=== PATIENT | male | born 1940 ===

== ENCOUNTER 2018-06-15 16:21 | Outpatient (RCR) | payer MEDICARE ==
[~2018-06-15 16:21] MED LIST: FAMO20TA28 PO; HYDR-389 PO; IBUP800T37 PO; LEVO-85 PO; LORA-788 PO; MULT1CAP59 PO; TAMS0.4C70 PO
[2018-06-16 16:14] VITALS: BP 136/84
--- NOTE | 2018-06-17 02:14 | [facility] ONCOLOGY NOTE ---
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 ONCOLOGY HISTORY Patient is a 77-year-old male who presented with sharp, disabling pain in the hips, preventing patient from walking 20 feet, and the patient was found to have a PSA of 190.6. Patient presented on February 17, 2016. He ended by having TRUS with biopsy on 23 March 2016, and the pathology came back positive for prostatic adenocarcinoma in all the 12 cores. The maximal Fisk score was 9 at the prostate right lateral apex, and a Claudia score of 8 at the right base. The rest of the cores have a Claudia score of 6 to 7. In March 2016, patient started combined androgen blockade with Lupron and bicalutamide. He had a bone scan done on 13 April 2016, which showed scattered focal areas of increased uptake in the left ilium adjacent to the acetabulum and in the right sixth and seventh ribs. On 14 April 2016, CT abdomen and pelvis showed retroperitoneal lymphadenopathy in the periaortic and pericaval chains, right internal and external lymphadenopathy, prostatomegaly without evidence of invasion of adjacent structures. There was a focus of blastic metastatic disease in the left ilium. Patient showed a response initially. His PSA in July 2016 was 1.46, and in May 2017 was 0.51, but on 21 September 2017 his PSA was 0.61. On 13 December 2017 it was 0.7. On 14 March 2018 it was 1.38. So, patient had a bone scan done on 16 May 2018, which came back negative for metastasis. CT chest/abdomen/pelvis done on 13 May 2018 showed pleural calcifications consistent with asbestos exposure and bilateral adrenal adenomas, diverticulosis, abdominal aortic aneurysm and enlarged prostate to the base of the bladder. Patient is referred for further evaluation and management. Patient has been seen by Dr. Melvin Aguilar with recommendation of stopping bicalutamide and starting another treatment. Patient stopped Casodex, but he started to have pain in his bones again, like when he was initially diagnosed, and he resumed the Casodex after discontinuation of Casodex for only about five days. PAST MEDICAL HISTORY Prostate cancer. PAST SURGICAL HISTORY 1. Nasal polypectomy. 2. Tonsillectomy as a child. 3. TRUS in March 2016. FAMILY HISTORY Negative for cancer. SOCIAL HISTORY Patient is with five children. 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 He smoked about 1-1/2 packs per day for 69 years, and he drinks whiskey with coffee every morning. He currently does not use any illicit drugs. . CURRENT MEDICATIONS 1. Acetaminophen/hydrocodone 7.5/325, one tablet every four to six hours p.r.n. for pain. 2. Ibuprofen 800 mg tablet three times a day for pain. 3. Multivitamin, one pill a day. 4. Flomax 0.4 mg daily. 5. Lupron shots every month. ALLERGIES NEOSPORIN and POTASSIUM. REVIEW OF SYSTEMS CONSTITUTIONAL: Patient has some hot flashes. HEENT: Ears: No tinnitus or hearing problem. Nose: No nasal discharge or epistaxis. Throat: No sore throat or mouth ulcers. Eyes: No diplopia or visual changes. RESPIRATORY: Has cough with expectoration. CARDIOVASCULAR: No chest pain, orthopnea, or paroxysmal nocturnal dyspnea (PND). No edema. No palpitations. GASTROINTESTINAL: He has diarrhea alternating with constipation sometimes. GENITOURINARY: He has nocturia if he misses his Flomax pills. MUSCULOSKELETAL: He has pain in the legs and in the hips bilaterally. NEUROLOGICAL: No tingling or numbness in the hands or feet. No headaches or convulsions. HEMATOLOGIC/LYMPHATIC: He is weak, tired, and fatigued. SKIN: No skin rash or lumps. PSYCHIATRIC: No anxiety or depression. PHYSICAL EXAMINATION GENERAL: Looks stable. Well-developed, well-nourished, and in no acute distress. VITAL SIGNS: Blood pressure 136/84, pulse 94 per minute, respirations 16 per minute, temperature 98.2, pulse oximetry 93% on room air. HEENT: Head: Atraumatic. No sinus tenderness to palpation. Eyes: No icterus or conjunctivitis. Mouth and throat: No oral thrush or mucositis. NECK: Supple. No cervical or supraclavicular lymphadenopathy. LUNGS: Clear to auscultation and percussion bilaterally. HEART: Regular rate and rhythm. No gallops, murmurs, clicks or rubs. ABDOMEN: Soft and lax. No tenderness. No hepatosplenomegaly. No masses. EXTREMITIES: No cyanosis, clubbing or edema. LYMPHATICS: No peripheral lymphadenopathy. NEUROLOGICAL: Conscious, alert and oriented times three. No focal motor or sensory deficits. PSYCHIATRIC: Mood and affect appear normal. SKIN: No skin rash, bruise or purpuric eruption. ASSESSMENT Castration-resistant, hormone-sensitive prostate cancer with retroperitoneal lymphadenopathy and pelvic lymphadenopathy and bone metastases. Started treatment with combined androgen blockade in March 2016, after a transrectal ultrasound done on 23 March 2018 which showed cancer in 12 cores, with a maximal Fisk score of 9 (4+5) at the right lateral apex and a Fisk score of 8 at the right base. The rest of the cores have Fisk score between 7 and 6. Patient showed response to treatment, but recently he has rising PSA. In May 2017 it was 0.51. In September 2017 it was 0.61. In December 2017 it was 0.7. In March 2018 it was 1.38. Patient had a bone scan on 16 May 2018 which was negative for metastases. He has also had a CT chest/abdomen/pelvis on 13 May 2018 which showed pleural calcifications, bilateral adrenal adenomas, diverticulosis, abdominal aortic aneurysm, and enlarged prostate to the base of the bladder, but there was no lymphadenopathy. For his biochemical relapse of the PSA, I am planning to stop bicalutamide and start treatment with either Zytiga or Xtandi. Patient has a problem with payment. He does not have drug coverage, and for this reason I am planning to ask the outreach and education social worker to help him to get one of these two drugs instead of bicalutamide, and we will continue to monitor his PSA after we start the treatment. I explained that to the patient, and he is agreeable with the plan of management. PLAN 1. Xtandi 160 mg daily. 2. social worker psychiatric to help to get the drug from the company if the insurance will not cover the Xtandi. 3. Check CBC, chem panel, and PSA prior to starting the patient. 4. Patient to return one month after the treatment with CBC, chem panel, and PSA. 5. CBC and chem panel to be checked weekly after starting Xtandi for the first month. 6. Patient to contact us for any new concerns or complaints. [facility]
--- NOTE | 2018-07-29 12:16 | NUR ---
SW faxed the confirmation of PAF co-pay assistance to [facility].
--- NOTE | 2018-08-09 19:59 | ONCOLOGY CHEMO TEACHING ---
DATE OF EVENT: August 08, 2018 DIAGNOSIS Metastatic prostate cancer. I spoke with the patient and his via phone today to discuss upcoming treatment with Zytiga and prednisone. A total of 45 minutes was spent on the phone with discussion regarding this treatment. HISTORY OF PRESENT ILLNESS Patient was diagnosed with castrate-resistant, hormone-sensitive prostate cancer with retroperitoneal lymphadenopathy. DICTATION ENDS HERE. MTDD
--- NOTE | 2018-08-09 21:08 | ONCOLOGY CHEMO TEACHING ---
DATE OF EVENT: August 09, 2018 The patient is a 78-year-old male with metastatic prostate cancer. He had been controlled on combined androgen blockade with Lupron and bicalutamide. PSA has recently increased, and the recommendation was for him to stop bicalutamide. He will begin treatment with abiraterone on 08/10/18. I spoke with his over the phone today to discuss the possible side effects of abiraterone. He will begin abiraterone 500 mg two daily. He is instructed to take this on an empty stomach and to swallow the tablets whole. He will also need to take prednisone 5 mg b.i.d. We reviewed that this can sometimes cause GI discomfort, so he may need to take this with food. We reviewed the possible side effects including fatigue, headache, muscle or joint pain, peripheral edema, hot flashes, hyperglycemia, and hypertriglyceridemia. Also noted was a small risk of osteoporosis as well as electrolyte abnormalities, hypertension, and increased liver function tests. The patient's is a nurse, and she has read extensively on the medication, but appreciated this followup phone call. DISCUSSION 1. A total of 30 minutes was spent on the phone with her today to discuss these medications. 2. Patient will have a CBC and CMP done weekly. He will see Dr. Barajas in four weeks. CBC, CMP, and PSA will be repeated at that time. NORMAN
--- NOTE | 2018-08-12 09:14 | NUR ---
Nurse returned call from patient's , Jocelyn, regarding questions she has. Nurse clarified the questions with YUDITH Vazquez. Patient is to take the 2 tablets of zytiga in the a.m. and take 5 mg of prednisone with breakfast and dinner. The also had concerns regarding the patient assistance through [employer]. They will be unable to pay for the third month of the medication. Nurse relayed this information to Brionna PHILIP. Brionna is planning to contact [employer] regarding approving patient for the remainder of the year without the patient having to pay for the third month. The stated that the patient would have to stop the medication if they have to pay out of pocked for the third month. Nurse informed the patient of Brionna's plan to contact [employer]. Nurse said that the patient and the will have to decide if they want the patient to begin the medication now hoping that Brionna will be able to get the third month covered as well or wait until they have an answer from that. She stated that they would discuss the options and decide what to do. Nurse reiterated that the patient needs to stay on the Casodex until the patient begins taking the zytiga. She verbalized understanding of all of the above discussions and agreed with the plan of care.
[2018-08-22] MEDS ORDERED: ABIR250T PO (13:31)
[2018-08-22] MEDS ORDERED: PRED-1 PO (13:31)
== END 2018-09-13 ==
LOC: ONC 16:21
PROVIDERS: ATTEND Internal Medicine Hematology
DX: C61 Malignant neoplasm of prostate (principal); C79.51 Secondary malignant neoplasm of bone; C77.3 Secondary and unspecified malignant neoplasm of axilla and upper limb lymph nodes; Z87.891 Personal history of nicotine dependence
CPT/HCPCS: 99202

== ENCOUNTER 2018-12-02 11:41 | Outpatient (RCR) | payer MEDICARE ==
[2018-09-23 12:28] VITALS: BP 135/80
--- NOTE | 2018-09-23 20:12 | [facility] ONCOLOGY NOTE ---
EVENT DATE: September 23, 2018 DIAGNOSIS Metastatic prostate cancer. CHIEF COMPLAINT Patient is here today for followup of his prostate cancer. ONCOLOGY HISTORY Patient is a 78-year-old male who presented with sharp, disabling pain in the hips, preventing patient from walking 20 feet, and the patient was found to have a PSA of 190.6. Patient presented on February 17, 2016. He ended by having TRUS with biopsy on the March, and the pathology came back positive for prostatic adenocarcinoma in all the 12 cores. The maximal Rochester score was 9 at the prostate right lateral apex and a Claudia score of 8 at the right base. The rest of the cores have a Rochester score of 6 to 7. In March 2016, patient started combined androgen blockade with Lupron and bicalutamide. He had a bone scan done on the April, which showed scattered focal areas of increased uptake in the left ilium adjacent to the acetabulum and in the right sixth and seventh ribs. On the April, CT abdomen and pelvis showed retroperitoneal lymphadenopathy in the periaortic and pericaval chains, right internal and external lymphadenopathy, prostatomegaly without evidence of invasion of adjacent structures. There was a focus of blastic metastatic disease in the left ilium. Patient showed a response initially. His PSA in July 2016 was 1.46, and in May 2017, was 0.51, but on the September, his PSA was 0.61. On the December, it was 0.7. On the March, it was 1.38. So, patient had a bone scan done on the May, which came back negative for metastasis. CT chest/abdomen/pelvis done on the May showed pleural calcifications consistent with asbestos exposure, bilateral adrenal adenomas, diverticulosis, abdominal aortic aneurysm, and enlarged prostate to the base of the bladder. Patient is referred for further evaluation and management. Patient has been seen by Dr. Melvin Aguilar with recommendation of stopping bicalutamide and starting another treatment. Patient stopped Casodex, but he started to have pain in his bones again like when he was initially diagnosed, and he resumed the Casodex after discontinuation of Casodex for only about five days. Patient started treatment with Zytiga and the prednisone on the August. HISTORY OF PRESENT ILLNESS Patient is here today for followup of his metastatic prostate cancer. He has significant hot flashes, especially after starting Zytiga and prednisone. He has cough with shortness of breath. He has occasional headache. He is weak, tired, and fatigued. Patient had his PSA checked on the 23 of August, and it came back 10.7, and on the 05 of September, and it came back to 14. PAST MEDICAL HISTORY Prostate cancer. PAST SURGICAL HISTORY 1. Nasal polypectomy. 2. Tonsillectomy as a child. 3. TRUS in March 2016. FAMILY HISTORY Negative for cancer. SOCIAL HISTORY Patient is with five children. 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 He smoked about 1-1/2 packs per day for 69 years, and he drinks whiskey with coffee every morning. He currently does not use any illicit drugs. . CURRENT MEDICATIONS 1. Acetaminophen/hydrocodone 7.5/325, one tablet every four to six hours p.r.n. for pain. 2. Ibuprofen 800 mg tablet three times a day for pain. 3. Multivitamin one pill a day. 4. Flomax 0.4 mg daily. 5. Lupron shots every month. ALLERGIES NEOSPORIN and POTASSIUM. REVIEW OF SYSTEMS CONSTITUTIONAL: No appetite or weight change. No fever or chills. He has hot flashes. No recent infection. HEENT: Ears: No tinnitus or hearing problem. Nose: No nasal discharge or epistaxis. Throat: No sore throat or mouth ulcers. Eyes: No diplopia or visual changes. RESPIRATORY: He has cough and shortness of breath. CARDIOVASCULAR: No chest pain, orthopnea, or paroxysmal nocturnal dyspnea (PND). No edema. No palpitations. GASTROINTESTINAL: No nausea or vomiting. No diarrhea or constipation. No change in bowel movements. No heartburn or swallowing difficulties. No abdominal pain. No jaundice. No hematemesis, melena, or rectal bleeding. GENITOURINARY: No hematuria or dysuria. MUSCULOSKELETAL: No pain in the muscles, joints, or bones. NEUROLOGICAL: No tingling or numbness in the hands or feet. He has headache. No convulsions. HEMATOLOGIC/LYMPHATIC: No bleeding or easy bruising. He is weak, tired, and fatigued. No enlarged lymph nodes. SKIN: No skin rash or lumps. PSYCHIATRIC: No anxiety or depression. PHYSICAL EXAMINATION GENERAL: Looks stable. Well developed, well nourished, and in no acute distress. VITAL SIGNS: Blood pressure 135/80, pulse 63 per minute, respirations 16 per minute, temperature 97.6, pulse ox 97% on room air. HEENT: Head: Atraumatic. No sinus tenderness to palpation. Eyes: No icterus or conjunctivitis. Mouth and Throat: No oral thrush or mucositis. NECK: Supple. No cervical or supraclavicular lymphadenopathy. LUNGS: Clear to auscultation and percussion bilaterally. HEART: Regular rate and rhythm. No gallops, murmurs, clicks, or rubs. ABDOMEN: Soft and lax. No tenderness. No hepatosplenomegaly. No masses. EXTREMITIES: No cyanosis, clubbing, or edema. LYMPHATICS: No peripheral lymphadenopathy. NEUROLOGICAL: Conscious, alert, and oriented times three. No focal motor or sensory deficits. PSYCHIATRIC: Mood and affect appear normal. SKIN: No skin rash, bruise, or purpuric eruption. DIAGNOSTIC DATA Chem panel showed blood sugar 127. Other parameters are normal. CBC showed white count 8.7, hemoglobin 15, hematocrit 43.6, and platelets 414,000. PSA is 14 when it was done on the 05 of September, and it was up from 10.7 on the August. ASSESSMENT 1. Metastatic prostate cancer with retroperitoneal lymphadenopathy and pelvic lymphadenopathy and bone metastases. Patient started treatment with combined androgen blockade in March 2016 after a transrectal ultrasound done on the March showed cancer in 12 cores, with a maximal Rochester score of 9 (4 + 5) at the right lateral apex and a Rochester score of 8 at the right base. The rest of the cores have Claudia scores between 7 and 6. Patient showed response to treatment, but recently he has a rising PSA. In May 2017, it was 0.51, and in September 2017, it was 0.61. In December 2017, it was 0.7, and in March 2018, it was 1.38. Patient had a bone scan on the May, which was negative for metastasis. He has also had a CT chest/abdomen/pelvis on the May, which showed pleural calcifications, bilateral adrenal adenomas, diverticulosis, abdominal aortic aneurysm, and enlarged prostate to the base of the bladder, but there was no lymphadenopathy. For his biochemical relapse of PSA, Casodex is stopped, and the patient has started treatment with Zytiga and prednisone on the August. Patient does not have good insurance, and we got the Zytiga from the pharmaceutical company. He has PSA on the 23 of August at 10.7 and on the 05 of September at 14. I am planning to get a PSA now, and I will see the patient in a month from now with CBC, chemistry panel, and PSA. In the meantime, will continue Zytiga and prednisone. 2. Hot flashes due to his treatment. 3. Fatigue due to the treatment for prostate cancer. PLAN 1. Continue Zytiga and prednisone. 2. Patient to return in one month with CBC, chem panel, PSA. 3. Check PSA today. 4. Patient to contact us for any new concerns or complaints. [facility]
[2018-10-28 11:52] VITALS: BP 158/86
--- NOTE | 2018-10-28 23:00 | ONCOLOGY FOLLOW UP NOTE ---
EVENT DATE: October 28, 2018 DIAGNOSIS Metastatic prostate cancer. CHIEF COMPLAINT Patient is here today for followup of his prostate cancer. ONCOLOGY HISTORY Patient is a 78-year-old male who presented with sharp, disabling pain in the hips, preventing patient from walking 20 feet, and the patient was found to have a PSA of 190.6. Patient presented on February 17, 2016. He ended by having TRUS with biopsy on the March, and the pathology came back positive for prostatic adenocarcinoma in all the 12 cores. The maximal [place] score was 9 at the prostate right lateral apex and a Claudia score of 8 at the right base. The rest of the cores have a [place] score of 6 to 7. In March 2016, patient started combined androgen blockade with Lupron and bicalutamide. He had a bone scan done on the April, which showed scattered focal areas of increased uptake in the left ilium adjacent to the acetabulum and in the right sixth and seventh ribs. On the April, CT abdomen and pelvis showed retroperitoneal lymphadenopathy in the periaortic and pericaval chains, right internal and external lymphadenopathy, prostatomegaly without evidence of invasion of adjacent structures. There was a focus of blastic metastatic disease in the left ilium. Patient showed a response initially. His PSA in July 2016 was 1.46, and in May 2017, was 0.51, but on the September, his PSA was 0.61. On the December, it was 0.7. On the March, it was 1.38. So, patient had a bone scan done on the May, which came back negative for metastasis. CT chest/abdomen/pelvis done on the May showed pleural calcifications consistent with asbestos exposure, bilateral adrenal adenomas, diverticulosis, abdominal aortic aneurysm, and enlarged prostate to the base of the bladder. Patient is referred for further evaluation and management. Patient has been seen by Dr. Melvin Aguilar with recommendation of stopping bicalutamide and starting another treatment. Patient stopped Casodex, but he started to have pain in his bones again like when he was initially diagnosed, and he resumed the Casodex after discontinuation of Casodex for only about five days. Patient started treatment with Zytiga and the prednisone on the August. HISTORY OF PRESENT ILLNESS Patient is here today for followup of his metastatic prostate cancer, currently on Zytiga and prednisone. He is complaining of hot flashes, cough with expectoration, pain in the thighs, and headache. Other than that, he is stable. PAST MEDICAL HISTORY Prostate cancer. PAST SURGICAL HISTORY 1. Nasal polypectomy. 2. Tonsillectomy as a child. 3. TRUS in March 2016. FAMILY HISTORY Negative for cancer. SOCIAL HISTORY Patient is with five children. 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 He smoked about 1-1/2 packs per day for 69 years, and he drinks whiskey with coffee every morning. He currently does not use any illicit drugs. . CURRENT MEDICATIONS 1. Acetaminophen/hydrocodone 7.5/325, one tablet every four to six hours p.r.n. for pain. 2. Ibuprofen 800 mg tablet three times a day for pain. 3. Multivitamin one pill a day. 4. Flomax 0.4 mg daily. 5. Lupron shots every month. ALLERGIES NEOSPORIN and POTASSIUM. REVIEW OF SYSTEMS CONSTITUTIONAL: Patient has some hot flashes. No appetite or weight change. No fever, chills, or sweating. No recent infection. HEENT: Ears: No tinnitus or hearing problem. Nose: No nasal discharge or epistaxis. Throat: No sore throat or mouth ulcers. Eyes: No diplopia or visual changes. RESPIRATORY: No shortness of breath. He has some cough with expectoration. No hemoptysis. CARDIOVASCULAR: No chest pain, orthopnea, or paroxysmal nocturnal dyspnea (PND). No edema. No palpitations. GASTROINTESTINAL: No nausea or vomiting. No diarrhea or constipation. No change in bowel movements. No heartburn or swallowing difficulties. No abdominal pain. No jaundice. No hematemesis, melena, or rectal bleeding. GENITOURINARY: No hematuria or dysuria. MUSCULOSKELETAL: He has pain in the thighs. NEUROLOGIC: No tingling or numbness in the hands or feet. He has constant headaches. No convulsions. HEMATOLOGIC/LYMPHATIC: No bleeding or easy bruising. No weakness or fatigue. No enlarged lymph nodes. SKIN: No skin rash or lumps. PSYCHIATRIC: No anxiety or depression. PHYSICAL EXAMINATION GENERAL: Looks stable. Well developed, well nourished, and in no acute distress. VITAL SIGNS: Blood pressure 158/86, pulse 65 per minute, respirations 16 per minute, temperature 98, pulse ox 93% on room air. HEENT: Head: Atraumatic. No sinus tenderness to palpation. Eyes: No icterus or conjunctivitis. Mouth and Throat: No oral thrush or mucositis. NECK: Supple. No cervical or supraclavicular lymphadenopathy. LUNGS: Clear to auscultation and percussion bilaterally. HEART: Regular rate and rhythm. No gallops, murmurs, clicks, or rubs. ABDOMEN: Soft and lax. No tenderness. No hepatosplenomegaly. No masses. EXTREMITIES: No cyanosis, clubbing, or edema. DIAGNOSTIC DATA CBC showed white count 8.5, hemoglobin 15.9, hematocrit 46.2, platelets 221,000. Chem panel is totally normal. PSA is 19.82. ASSESSMENT 1. Metastatic prostate cancer with retroperitoneal lymphadenopathy and pelvic lymphadenopathy and bone metastases. Patient started treatment with combined androgen blockade March 2016 after a transrectal ultrasound done March showed cancer in 12 cores, with a maximal [place] score of 9 (4 + 5) at the right lateral apex and a Claudia score of 8 at the right base. The rest of the cores have Claudia scores of 7 and 6. Patient showed response to treatment, but recently he had a rising PSA. In May 2017, his PSA was 0.51, and in September 2017, it was 0.61. In December 2017, it was 0.7, and March 2018, it was 1.38. Patient had a bone scan on the May, which was negative bony metastases. He has also had a CT chest/abdomen/pelvis May, which showed pleural calcifications, bilateral adrenal adenomas, diverticulosis, abdominal aortic aneurysm, and enlarged prostate to the base of the bladder, but there was no lymphadenopathy. For his biochemical relapse of PSA, Casodex was stopped, and the patient started treatment with Zytiga and prednisone the August. His PSA in August was 10.7, which karon after that in September 2018 to 14, and currently it is 19.8. Given that the patient does not respond to Zytiga, I will try to get approval of the pharmaceutical company to provide him with Xtandi. I talked to him also briefly about possible chemotherapy with Taxotere. Patient is opposing the day of chemotherapy, but I think if this will be the only option, he may agree to have the treatment at that time. I am planning to see him in a month after he will start Xtandi with CBC, chemistry panel, and PSA. 2. Hot flashes due to his treatment. 3. Fatigue due to treatment for prostate cancer. PLAN 1. Continue Zytiga and prednisone until Xtandi will be available. 2. Xtandi 160 mg daily. 3. Patient to return in one month after starting Xtandi with CBC, chem panel, and PSA. 4. Patient to contact us for any new concern or complaints. MTDD
--- NOTE | 2018-11-01 09:24 | NUR ---
C[facility] faxed in new application for Xtandi Patient Assistance. Hope to get pt approved for free drug.
--- NOTE | 2018-11-03 12:30 | NUR ---
Returned call from , Jocelyn. She had some questions regarding patient starting Xtandi. The first question that she had was if it was okay for Tray to abruptly stop taking prednisone. Nurse assured her that it was a low dose but that she could cut those 5 mg tablets in half and give Tray 2.5 mg BID for a week then stop. She stated that he will have his lab work done in [place]. He will start the Xtandi today. He will get his lab work done on 11/28/18 and follow up with Dr. Spaulding on 12/02/18. verbalized understanding and agrees with the plan of care. Nurse encouraged her to call our office if any other questions arise.
[2018-11-08 13:08] VITALS: BP 123/81
[2018-11-08 14:08] LABS: PLATELET COUNT, AUTOMATED 241 K/uL (150-450)
--- NOTE | 2018-11-09 09:04 | ONCOLOGY FOLLOW UP NOTE ---
EVENT DATE: November 08, 2018 DIAGNOSIS Metastatic prostate cancer. CHIEF COMPLAINT Patient is here today for ongoing followup on his prostate cancer. He has many questions regarding his Xtandi. ONCOLOGY HISTORY Patient is a 78-year-old male who presented with sharp, disabling pain in the hips, preventing patient from walking 20 feet, and the patient was found to have a PSA of 190.6. Patient presented on February 17, 2016. He ended by having TRUS with biopsy on March 23, 2016, and the pathology came back positive for prostatic adenocarcinoma in all the 12 cores. The maximal [place] score was 9 at the prostate right lateral apex and a Claudia score of 8 at the right base. The rest of the cores have a [place] score of 6 to 7. In March 2016, patient started combined androgen blockade with Lupron and bicalutamide. He had a bone scan done on April 13, 2016, which showed scattered focal areas of increased uptake in the left ilium adjacent to the acetabulum and in the right sixth and seventh ribs. On April 14, 2016, CT abdomen and pelvis showed retroperitoneal lymphadenopathy in the periaortic and pericaval chains, right internal and external lymphadenopathy, prostatomegaly without evidence of invasion of adjacent structures. There was a focus of blastic metastatic disease in the left ilium. Patient showed a response initially. His PSA in July 2016 was 1.46, and in May 2017, was 0.51, but on the September, his PSA was 0.61. On December 13, 2017, it was 0.7. On March 14, 2018, it was 1.38. So, patient had a bone scan done on the May, which came back negative for metastasis. CT chest/abdomen/pelvis done on May 13, 2018 showed pleural calcifications consistent with asbestos exposure, bilateral adrenal adenomas, diverticulosis, abdominal aortic aneurysm, and enlarged prostate to the base of the bladder. Patient is referred for further evaluation and management. Patient has been seen by Dr. Melvin Aguilar with recommendation of stopping bicalutamide and starting another treatment. Patient stopped Casodex, but he started to have pain in his bones again like when he was initially diagnosed, and he resumed the Casodex after discontinuation of Casodex for only about five days. Patient started treatment with Zytiga and the prednisone on August 12, 2018. Patient has now discontinued that. He started Xtandi in early November 2018. HISTORY OF PRESENT ILLNESS Mr. John is here today for followup regarding his metastatic prostate cancer after recently initiating Xtandi. He is accompanied in the office by his . Most recently, he was instructed to discontinue Zytiga and prednisone as he was not responding to that and was initiated on Xtandi. He did not start this until last weekend, in early November. He has had hot flashes and remains on Lupron. He is off Casodex. He does have generalized arthralgias. He continues to have a cough with expectoration. No hemoptysis. The patient and are concerned about Xtandi. He apparently started this , November 03, and on Wednesday morning, after taking two daily doses, he reports having "a spell" which consisted of sudden nausea and subsequent fainting. He tells me that he was at home, doens't think he was dehydrated, had just laid down in bed, and after rolling over on his left side he suddenly became nauseous. The room started to darken and went black and he tells me that he then passed out. 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 She tells me that she thinks maybe his pulse was irregular. He denies any cardiac history, although patient and his tell me that several years ago he went into the emergency room complaining of chest pain and he tells me he was subsequently admitted for at least seven days and cardiac workup was negative. I do not have these records. These symptoms only occurred once on Wednesday but as a result he did not take his third daily dose on Wednesday and has since self-discontinued this. He is extremely concerned about reinitiating Xtandi and has questions today about further treatment. He is aware that Dr. Barajas discussed potential chemotherapy with Taxotere in the future and he has questions about this as well. Otherwise, he has had no other issues. PAST MEDICAL HISTORY Prostate cancer. PAST SURGICAL HISTORY 1. Nasal polypectomy. 2. Tonsillectomy as a child. 3. TRUS in March 2016. FAMILY HISTORY Negative for cancer. SOCIAL HISTORY Patient is with five children. 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 He smoked about 1-1/2 packs per day for 69 years, and he drinks whiskey with coffee every morning. He currently does not use any illicit drugs. . CURRENT MEDICATIONS 1. Acetaminophen/hydrocodone 7.5/325, one tablet every four to six hours p.r.n. for pain. 2. Ibuprofen 800 mg tablet three times a day for pain. 3. Multivitamin one pill a day. 4. Flomax 0.4 mg daily. 5. Lupron shots every month. ALLERGIES NEOSPORIN and POTASSIUM. REVIEW OF SYSTEMS CONSTITUTIONAL: Patient denies any recent fevers, chills or night sweats. No recent infections. His appetite and weight have been stable. HEENT: No vision changes. No tinnitus. No dysphagia or odynophagia. RESPIRATORY: No shortness of breath. He has a productive cough with clear to white sputum. No hemoptysis. No pleuritic chest pain. He continues smoking. CARDIOVASCULAR: No chest pain or orthopnea. No edema. No palpitations. He reports one fainting episode three days ago, which was acute and then resolved. He has not had any recurrence. GASTROINTESTINAL: No abdominal pain, nausea, vomiting, constipation, diarrhea, bright red blood per rectum or melena. Appetite is normal. GENITOURINARY: No dysuria, hematuria or genitourinary discharge. MUSCULOSKELETAL: He reports diffuse generalized arthralgias. He also has notable pain in the thighs. This is all unchanged. NEUROLOGIC: He reports constant headaches. None today. No seizure like activity. No numbness or tingling in the hands or feet. SKIN: No rash. No generalized pruritus. PSYCHIATRIC: He denies any severe anxiety, severe depression, suicidal or homicidal ideation. HEME/LYMPH: He denies any bleeding or easy bruising. ENDOCRINE: No heat or cold intolerance. He continues to experience some hot flashes secondary to androgen/hormonal therapy. He reports generalized fatigue. The remainder of a 12-point review of systems is performed today and is otherwise negative. PHYSICAL EXAMINATION VITAL SIGNS: T 97.3, P 59, R 16, BP 123/81. GENERAL: This is a pleasant 78-year old gentleman who appears well-hydrated, well-nourished and is in no acute distress. He does smell of extensive cigarette smoke. HEAD: Atraumatic, normocephalic. EYES: Sclerae anicteric. ENT/MOUTH: Moist mucous membranes. No mucositis. NECK: Supple. No lymphadenopathy. LUNGS: Clear to auscultation bilaterally. No focal findings. HEART: Mildly bradycardic. Heart rate in upper 50s. Regular rhythm. No ectopy. ABDOMEN: Soft, nontender, nondistended. Bowel sounds positive x4. No organomegaly. NEURO: Patient is awake, alert, oriented x3. EXTREMITIES: No clubbing, cyanosis or edema. MUSCULOSKELETAL: Gait and ambulation are steady. PSYCH: Mood and affect are appropriate. LABORATORY CBC today: WBC 7.6, ANC 5.2, hemoglobin 15.3, hematocrit 45.2%, platelets 241,000. CMP today: Completely unremarkable. IMPRESSION/PLAN Patient is a 78-year old gentleman with history of: 1. Metastatic prostate cancer with retroperitoneal lymphadenopathy and pelvic lymphadenopathy and bone metastases. Patient started treatment with combined androgen blockade March 2016 after a transrectal ultrasound done March 23, 2018 showed cancer in 12 cores, with a maximal [place]ia score of 9 (4 + 5) at the right lateral apex and a Claudia score of 8 at the right base. The rest of the cores have [place] scores of 7 and 6. Patient showed response to treatment, but recently he had a rising PSA. In May 2017, his PSA was 0.51, and in September 2017, it was 0.61. In December 2017, it was 0.7, and March 2018, it was 1.38. Patient had a bone scan on May 16, 2018, which was negative bony metastases. He has also had a CT chest/abdomen/pelvis May 13, 2018, which showed pleural calcifications, bilateral adrenal adenomas, diverticulosis, abdominal aortic aneurysm, and enlarged prostate to the base of the bladder, but there was no lymphadenopathy. For his biochemical relapse of PSA, Casodex was stopped, and the patient started treatment with Zytiga and prednisone August 12, 2018. PSA in August was 10.7, which karon after that in September to 14, and at last visit with medical oncology here it was up to 19.8. Since the patient did not respond to Zytiga, we had him stop that and initiated treatment with Xtandi. Dr. Barajas also discussed option for chemotherapy with Taxotere, although patient was quite opposed to initiating chemotherapy. We did discuss that this may be the only option. He actually started his Xtandi on November 03, and took two doses on and Wednesday but then did not continue this and self- discontinued this on Monday, November 05, 2018, just a few days ago, after he had a dizzy spell, which he believed was related to Xtandi; patient and his were unsure if this was related or not but they opted to discontinue this until today. It is unclear whether or not patient had a vasovagal episode or if there was any other etiology for his fainting spell. He reports that he suddenly became nauseous and blacked out and apparently, per his , his heart rate was down to the low 30s, although he is normally bradycardic. He denies any past cardiac history and tells me that this extensively worked up several years ago. Explained that he could still develop cardiac abnormalities despite a reported previous work-up years ago. CBC and CMP today are in good range and I do not see any abnormalities that could've contributed. At this time I'm not certain that this is related to Xtandi. 1. Labs checked today. We will hold off on checking PSA as he's only had two doses of Xtandi. 2. We had a long discussion about Xtandi and the common side effects with that and we also discussed Taxotere and its common side effects. After a long discussion, patient wishes to reinitiate Xtandi. 3. I recommended follow-up with his PCP and/or referral to Cardiology for evaluation. Patient doesn't feel this is necessary at this time. He also tells me that he only rarely sees a PCP and can't recall the last time he was seen. 4. We reviewed ER parameters. Patient states that if he were to have another fainting spell, he doesn't want to call the ambulance as he prefers to at home. Explained it would be best to notify a healthcare professional. 3. I have written orders for patient to re-start Xtandi tomorrow as he has this at home, although patient tells me he will start this today. 4. We discussed the importance of adequate hydration, decreased alcohol intake, sleep, nutrition and we reviewed ER parameters. Of note, patient tells me that if a fainting spell were to happen again, he does not want to call the ambulance as he prefers to at home. I explained to patient that this may not be that severe, although I do think if it happens again he does need to notify a healthcare professional. 5. Patient will return to the clinic on December 02, 2018, as scheduled to follow up with his medical oncologist. He should have been on Xtandi at that point for at least a month unless he were to stop that before we see him. MTDD
[~2018-12-02 11:41] MED LIST changes: +ABIR250T PO; +ENZA40CA PO; +PRED-1 PO
[2018-12-02 11:51] VITALS: BP 127/73
--- NOTE | 2018-12-02 16:49 | ONCOLOGY FOLLOW UP NOTE ---
EVENT DATE: December 02, 2018 DIAGNOSIS Metastatic prostate cancer. CHIEF COMPLAINT Patient is here today for followup of his prostate cancer. ONCOLOGY HISTORY Patient is a 78-year-old male who presented with sharp, disabling pain in the hips, preventing patient from walking 20 feet, and the patient was found to have a PSA of 190.6. Patient presented on February 17, 2016. He ended by having TRUS with biopsy on the March, and the pathology came back positive for prostatic adenocarcinoma in all the 12 cores. The maximal Claudia score was 9 at the prostate right lateral apex and a Turney score of 8 at the right base. The rest of the cores have a Turney score of 6 to 7. In March 2016, patient started combined androgen blockade with Lupron and bicalutamide. He had a bone scan done on the April, which showed scattered focal areas of increased uptake in the left ilium adjacent to the acetabulum and in the right sixth and seventh ribs. On the April, CT abdomen and pelvis showed retroperitoneal lymphadenopathy in the periaortic and pericaval chains, right internal and external lymphadenopathy, prostatomegaly without evidence of invasion of adjacent structures. There was a focus of blastic metastatic disease in the left ilium. Patient showed a response initially. His PSA in July 2016 was 1.46, and in May 2017, was 0.51, but on the September, his PSA was 0.61. On the December, it was 0.7. On the March, it was 1.38. So, patient had a bone scan done on the May, which came back negative for metastasis. CT chest/abdomen/pelvis done on the May showed pleural calcifications consistent with asbestos exposure, bilateral adrenal adenomas, diverticulosis, abdominal aortic aneurysm, and enlarged prostate to the base of the bladder. Patient is referred for further evaluation and management. Patient has been seen by Dr. Melvin Aguilar with recommendation of stopping bicalutamide and starting another treatment. Patient stopped Casodex, but he started to have pain in his bones again like when he was initially diagnosed, and he resumed the Casodex after discontinuation of Casodex for only about five days. Patient started treatment with Zytiga and the prednisone on the August. Patient started treatment with Xtandi in November 2018. HISTORY OF PRESENT ILLNESS Patient is here today for followup of his metastatic prostate cancer. He is complaining of some hot flashes. He has cough with expectoration and shortness of breath. He has nausea and diarrhea. He has lower back pain. He has frequent headaches. He is weak, tired, and fatigued. PAST MEDICAL HISTORY Prostate cancer. PAST SURGICAL HISTORY 1. Nasal polypectomy. 2. Tonsillectomy as a child. 3. TRUS in March 2016. SOCIAL HISTORY Patient is with five children. 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 He smoked about 1-1/2 packs per day for 69 years, and he drinks whiskey with coffee every morning. He currently does not use any illicit drugs. . FAMILY HISTORY Negative for cancer. CURRENT MEDICATIONS 1. Acetaminophen/hydrocodone 7.5/325, one tablet every four to six hours p.r.n. for pain. 2. Ibuprofen 800 mg tablet three times a day for pain. 3. Multivitamin one pill a day. 4. Flomax 0.4 mg daily. 5. Lupron shots every month. ALLERGIES NEOSPORIN and POTASSIUM. REVIEW OF SYSTEMS CONSTITUTIONAL: He has hot flashes. No appetite or weight change. No fever, chills, or sweating. No recent infection. HEENT: Ears: No tinnitus or hearing problem. Nose: No nasal discharge or epistaxis. Throat: No sore throat or mouth ulcers. Eyes: No diplopia or visual changes. RESPIRATORY: He has cough with expectoration and shortness of breath. No hemoptysis. CARDIOVASCULAR: No chest pain, orthopnea, or paroxysmal nocturnal dyspnea (PND). No edema. No palpitations. GASTROINTESTINAL: He has nausea and diarrhea. No vomiting. No constipation. No change in bowel movements. No heartburn or swallowing difficulties. No abdominal pain. No jaundice. No hematemesis, melena, or rectal bleeding. GENITOURINARY: No hematuria or dysuria. MUSCULOSKELETAL: He has lower back pain. NEUROLOGIC: No tingling or numbness in the hands or feet. He has headache. No convulsions. HEMATOLOGIC/LYMPHATIC: No bleeding or easy bruising. He is weak, tired, and fatigued. No enlarged lymph nodes. SKIN: No skin rash or lumps. PSYCHIATRIC: No anxiety or depression. PHYSICAL EXAMINATION GENERAL: Looks stable. Well developed, well nourished, and in no acute distress. VITAL SIGNS: Blood pressure 127/73, pulse 64 per minute, respirations 16 per minute, temperature 97.2, pulse ox 90% on room air. HEENT: Head: Atraumatic. No sinus tenderness to palpation. Eyes: No icterus or conjunctivitis. Mouth and Throat: No oral thrush or mucositis. NECK: Supple. No cervical or supraclavicular lymphadenopathy. LUNGS: Clear to auscultation and percussion bilaterally. HEART: Regular rate and rhythm. No gallops, murmurs, clicks, or rubs. ABDOMEN: Soft and lax. No tenderness. No hepatosplenomegaly. No masses. EXTREMITIES: No cyanosis, clubbing, or edema. LYMPHATICS: No peripheral lymphadenopathy. NEUROLOGIC: Conscious, alert, and oriented times three. No focal motor or sensory deficits. PSYCHIATRIC: Mood and affect appear normal. SKIN: No skin rash, bruise, or purpuric eruption. DIAGNOSTIC DATA CBC showed white count 6.5, hemoglobin 15.8, hematocrit 45.3, platelets 274,000. Chem panel totally normal. PSA is 9.94, which is down from 19.82 after starting Xtandi. ASSESSMENT 1. Metastatic prostate cancer with retroperitoneal lymphadenopathy and pelvic lymphadenopathy and bone metastases. Patient started treatment with combined androgen blockade March 2016 after a transrectal ultrasound done March which showed cancer in 12 cores, with maximum Turney score of 9 (4 + 5) at the right lateral apex and a Turney score of 8 at the right base. The rest of the cores have Claudia scores of 7 and 6. Patient showed response to treatment, but he had a rising PSA after the initial response. In May 2017, his PSA was 0.51, and in September 2017, it was 0.61. In December 2017, it was 0.7, and in March 2018, it was 1.38. Patient had a bone scan on the May, which was negative bony metastases. He also had a CT chest, abdomen, and pelvis on the May, which showed pleural calcifications, bilateral adrenal adenomas, diverticulosis, abdominal aortic aneurysm, and enlarged prostate to the base of the bladder, but there was no lymphadenopathy. For his biochemical relapse of PSA, Casodex was stopped, and patient started treatment with Zytiga and prednisone the August. His PSA in August was 10.7, which karon after that in September 2018 to 14, and then to 19.8. Given that the patient did not respond to Zytiga, patient started treatment with Xtandi at the beginning of November 2018, and after nearly three to four weeks, his PSA dropped from 19.8 to currently 9.94. I am planning to continue Xtandi at 160 mg daily, and I will see him in two months for CBC, chemistry panel, and PSA on his next visit. 2. Hot flashes due to his hormonal therapy. 3. Fatigue due to the treatment for prostate cancer. PLAN 1. Xtandi 160 mg daily. 2. Patient to return in two months with CBC, chem panel, and PSA. 3. Patient to contact us for any new concerns or complaints. MTDD
== END 2018-12-21 ==
LOC: ONC 11:41
PROVIDERS: ATTEND Internal Medicine Hematology
DX: C61 Malignant neoplasm of prostate (principal); R53.83 Other fatigue; R05 Cough; R06.02 Shortness of breath; R51 Headache; R53.1 Weakness; Z79.811 Long term (current) use of aromatase inhibitors; F17.210 Nicotine dependence, cigarettes, uncomplicated
CPT/HCPCS: 36415; 84153; 85025; G0463; 82040; 82247; 82310; 82374; 82435; 82565; 82947; 84075; 84132; 84155; 84295; 84450; 84460; 84520; 99212